=== PATIENT | male | born 1995 | race Caucasian/White ===

== ENCOUNTER 2018-08-18 06:13 | Observation (INO) | payer OTHER, SELFPAY ==
[2018-08-18] VITALS (18 sets, daily range): BP systolic 93–128; BP diastolic 32–77; PULSE 47–70; RESP 12–16; TEMP 36.3–37.5; O2SAT 96–100; BMI 22.8; BMI 22.3
--- NOTE | 2018-08-18 | PATH_ITS ---
[facility] Accession Number: [id number] . 01 Material submitted: . appendix - APPENDIX . 02 Diagnosis: Appendix, Appendectomy: Acute suppurative appendicitis with serositis. No evidence of dysplasia or malignancy. [facility]/08/20/2018 . 02 Electronically signed: . Riya Gutierrez MD, Pathologist NPI- [id number] . 01 Gross description: . Received in formalin, labeled appendix, is an intact appendix (length-6.9 cm, diameter-up to 0.9 cm) with haley-pink smooth shiny serosa and attached mesoappendix (up to 1.2 cm in depth). The resection margin is received stapled. The lumen contains red-brown soft material. The wall is up to 0.2 cm thick. No nodules, masses or lesions are identified. The resection margin is inked black. Section code: (A1) resection margin en face and five additional serial sections; (A2) one-half of the bivalved tip. ([id number]) /MRV . 02 Pathologist provided ICD-10: K35.80 . 02 CPT . 942820 Performed at: 01 [facility] [address], [place], [place] [id number] MD Josh Purvis MD Phone: [phone] Performed at: 02 [facility] [address] [place], [place] [id number] MD Riya Gutierrez MD Phone: [phone]
--- NOTE | 2018-08-18 07:24 | DI.US.S_ITS ---
PROCEDURE: US ABDOMEN LIMITED INDICATIONS: SUDDEN ONSET RLQ PAIN TECHNIQUE: Real-time focused scanning was performed of the abdomen with attention to the appendix, with image documentation. COMPARISON: None. FINDINGS: Appendix visualization: Identified. Appendix measurements: Up to 8 mm in maximal outer dimension thickness, abnormal Associated findings: Echogenic fat: Absent Appendiceal compressibility: Absent Appendicoliths: Absent Nearby free fluid: Absent Lymphadenopathy: Absent Tenderness on exam: Present IMPRESSION: Acute appendicitis. Dictated by: Carlos Pringle M.D. on 08/18/2018 at 8:11 Approved by: Carlos Pringle M.D. on 08/18/2018 at 8:12
[2018-08-18 07:29] LABS: Add Manual Diff / Slide Review NO; Basophils Absolute Auto 0 /uL (0-100); Basophils Percent Auto 0.3 % (0-2); Eosinophils Absolute Auto 200 /uL (0-450); Eosinophils Percent Auto 1.1 % (2-4); Hematocrit 44.8 % (41-53); Hemoglobin 15.1 g/dL (13.5-17.5); Lymphocytes Absolute Auto 2600 /uL (1100-4500); Lymphocytes Percent Auto 18.9 % (25-40); Mean Corpuscular HGB Conc 33.8 % (30-36); Mean Corpuscular Hemoglobin 31.5 PG (26-34); Mean Corpuscular Volume 93.1 fL (80-100); Monocytes Absolute Auto 1100 /uL (0-900); Monocytes Percent Auto 8.1 % (3-14); Neutrophils Absolute Auto 9900 /uL (1500-7000); Neutrophils Percent Auto 71.6 % (50-75); Platelet Count 235 X10^3/uL (150-400); Red Blood Cell Count 4.81 X10^6/uL (4.5-5.9); Red Cell Distribution Width 12.6 % (11.6-14.8); White Blood Cell Count 13.9 X10^3/uL (4.5-11.0)
--- NOTE | 2018-08-18 07:29 | ED_ITS ---
HPI - Abdominal Pain General Chief Complaint: Abdominal Pain Stated Complaint: severe rlq pain x3 hours Time Seen by Provider: 08/18/18 06:30 Source: patient Mode of arrival: ambulatory Limitations: no limitations History of Present Illness HPI narrative: Patient is a 23-year-old male presents with right lower quadrant pain started 3 hours ago. Sudden and severe. Nonradiating. Hurts every time he moves. He was able to eat dinner last night no difficulty. No fever, no vomiting. no history of kidney stones. MD complaint: abdominal pain Onset (ago): hour(s) Pain Consistency: constant Location: RLQ Severity: moderate Quality: stabbing Radiation: none Migration to: no migration Relieving factors: nothing Exacerbating factors: nothing Related Data Allergies Allergy/AdvReac Type Severity Reaction Status Date / Time No Known Drug Allergies Allergy Verified 08/18/18 06:27 Review of Systems Review of Systems GENERAL: Denies chills, fatigue, malaise, fever, sweats, travel HEENT: Denies sinus pain, ear pain, sore throat, difficulty swallowing, neck pain RESPIRATORY: Denies dyspnea, cough, wheezing, hemoptysis, sputum. CARDIOVASCULAR: Denies chest pain, palpitations, orthopnea, edema GASTROINTESTINAL: See HPI : Denies dysuria, frequency, incontinence, hematuria, urinary retention, flank pain. MUSCULOSKELETAL: Denies weakness, joint pain, or bony pain SKIN: No rash, no erythema, no pruritus NEUROLOGIC: Denies weakness, dizziness, headache, numbness, change in speech, confusion PSYCHIATRIC: No concerning psychosocial issues. 12 point review of systems is negative except for those stated above and HPI [facility] Medical History Migraines (Acute) Varicose vein of leg (Acute) Social History household members: significant other Smoking Status: Current every day smoker alcohol intake: current substance use type: does not use Social History household members: significant other Smoking Status: Current every day smoker alcohol intake: current substance use type: does not use Exam Initial Vital Signs Initial Vital Signs: Vital Signs Temperature 97.9 F 08/18/18 06:27 Pulse Rate 56 L 08/18/18 06:27 Respiratory Rate 14 08/18/18 06:27 Blood Pressure 128/65 08/18/18 06:27 Pulse Oximetry 100 08/18/18 06:27 GENERAL: Well-appearing, well-nourished and in no acute distress. HEENT: Head atraumatic,EOMI, pupils reactive, face symmetric, CARDIOVASCULAR: Regular rate and rhythm without murmurs, rubs or gallops. RESPIRATORY: Breath sounds equal bilaterally, no wheezes rales or rhonchi. ABDOMEN: Soft, right lower quadrant tenderness quite severe as mild right flank guarding no rebound : No CVA tenderness EXTREMITIES: Normal range of motion, no clubbing or edema. Neurovascularly intact NEUROLOGICAL: Alert and oriented x4.Normal gait and speech. SKIN: Warm, dry, no laceration, no petechiae, no rashes or lesions. Course Orders Ordered: ED Orders 08/18/18 06:30 Complete Blood Count AUTO DIFF Stat Comprehensive Metabolic Panel Stat Lipase Stat Partial Thromboplastin Time Stat Prothrombin Time INR Stat 08/18/18 07:00 Urine Microscopic Stat 08/18/18 07:24 US abdomen limited Stat Fentanyl (Sublimaze) 50 mcg IV Q5MIN PRN PRN Reason: Pain, Moderate (4-6) Hydromorphone HCl (Dilaudid) 1 mg IV Q2HR PRN PRN Reason: Pain, Severe (7-10) Stop: 08/19/18 00:00 Last Admin: 08/18/18 10:52 Dose: 1 mg Hydromorphone HCl (Dilaudid) 0.5 mg IV Q5MIN PRN PRN Reason: Pain, Moderate (4-6) Sodium Chloride (Normal Saline 0.9%) 1,000 mls @ 100 mls/hr IV CONT GIANNA Last Admin: 08/18/18 10:32 Dose: 100 mls/hr Piperacillin/Tazobactam/Dextrose (Zosyn) 3.375 gm in 50 mls @ 100 mls/hr IV Q8 HR GIANNA Lactated Ringer's (Lactated Ringers) 1,000 mls @ 42 mls/hr IV CONT GIANNA Metoclopramide HCl (Reglan) 10 mg IV NOW PRN PRN Reason: Nausea And Vomiting Ondansetron HCl (Zofran) 4 mg IV NOW PRN PRN Reason: Nausea And Vomiting Discontinued Medications Sodium Chloride (Normal Saline 0.9%) 1,000 mls @ 1,000 mls/hr IV BOLUS ONE Stop: 08/18/18 08:23 Last Infusion: 08/18/18 09:37 Dose: 0 mls/hr Admin: 08/18/18 08:30 Dose: 1,000 mls/hr Piperacillin/Tazobactam/Dextrose (Zosyn) 3.375 gm in 50 mls @ 100 mls/hr IV NOW ONE Stop: 08/18/18 08:24 Last Infusion: 08/18/18 08:48 Dose: 0 mls/hr Admin: 08/18/18 08:18 Dose: 100 mls/hr Ketorolac Tromethamine (Toradol) 30 mg IV NOW ONE Stop: 08/18/18 07:25 Last Admin: 08/18/18 07:47 Dose: Not Given Morphine Sulfate (Morphine) 2 mg IV NOW ONE Stop: 08/18/18 07:50 Last Admin: 08/18/18 07:59 Dose: 2 mg Morphine Sulfate (Morphine) 2 mg IV NOW ONE Stop: 08/18/18 08:24 Last Admin: 08/18/18 08:29 Dose: 2 mg Ondansetron HCl (Zofran) 4 mg IV NOW ONE Stop: 08/18/18 07:41 Last Admin: 08/18/18 07:45 Dose: 4 mg Vital Signs - 8 hr 08/18/18 06:27 08/18/18 08:10 08/18/18 09:55 Temperature 97.9 F 98.4 F Pulse Rate 56 L 70 65 Respiratory Rate 14 16 16 Blood Pressure 128/65 111/61 Blood Pressure [Right Arm] 121/56 L Pulse Oximetry 100 100 100 08/18/18 11:04 Temperature 98.5 F Pulse Rate 62 Respiratory Rate 16 Blood Pressure 109/44 L Blood Pressure [Right Arm] Pulse Oximetry 97 MDM - Abdominal Pain Lab Data Attestation: I reviewed the patient's lab results. Result diagrams: 08/18/18 06:30 08/18/18 06:30 Lab Results 08/18/18 08/18/18 08/18/18 Range/Units 06:30 06:30 06:30 WBC 13.9 H (4.5-11.0) X10^3/uL RBC 4.81 (4.5-5.9) X10^6/uL Hgb 15.1 (13.5-17.5) g/dL Hct 44.8 (41-53) % MCV 93.1 (80-100) fL MCH 31.5 (26-34) PG MCHC 33.8 (30-36) % RDW 12.6 (11.6-14.8) % Plt Count 235 (150-400) X10^3/uL Neut % (Auto) 71.6 (50-75) % Lymph % (Auto) 18.9 L (25-40) % [place] % (Auto) 8.1 (3-14) % Eos % (Auto) 1.1 L (2-4) % Baso % (Auto) 0.3 (0-2) % Neut # (Auto) 9900 H (4401-9690) /uL Lymph # (Auto) 2600 (5308-8348) /uL [place] # (Auto) 1100 H (0-900) /uL Eos # (Auto) 200 (0-450) /uL Baso # (Auto) 0 (0-100) /uL PT 11.5 (10.1-12.7) SECONDS INR 1.0 (0.9-1.3) APTT 34 (26.4-36.2) SECONDS Sodium 140 (137-145) mmol/L Potassium 4.1 (3.4-5.1) mmol/L Chloride 104 (98-107) mmol/L Carbon Dioxide 28 (22-32) mmol/L BUN 14 (9-20) mg/dL Creatinine 0.80 (0.66-1.25) mg/dL Estimated GFR > 60.0 (>60) mL/min BUN/Creatinine Ratio 17.5 (6-22) Glucose 100 (70-100) mg/dL Calcium 9.7 (8.4-10.2) mg/dL Total Bilirubin 0.4 (0.2-1.3) mg/dL AST 26 (17-59) IU/L ALT 21 (21-72) IU/L Alkaline Phosphatase 56 (38-126) U/L Total Protein 7.0 (6.3-8.2) g/dL Albumin 4.5 (3.5-5.0) g/dL Globulin 2.5 (1.7-4.1) g/dL Albumin/Globulin Ratio 1.8 (1.0-2.8) Lipase 41 (23-300) U/L Imaging Data US - abdomen: Radiologist's impression: PROCEDURE: US ABDOMEN LIMITED INDICATIONS: SUDDEN ONSET RLQ PAIN TECHNIQUE: Real-time focused scanning was performed of the abdomen with attention to the a ppendix, with image documentation. COMPARISON: None. FINDINGS: Appendix visualization: Identified. Appendix measurements: Up to 8 mm in maximal outer dimension thickness, abnormal Associated findings: Echogenic fat: Absent Appendiceal compressibility: Absent Appendicoliths: Absent Nearby free fluid: Absent Lymphadenopathy: Absent Tenderness on exam: Present IMPRESSION: Acute appendicitis. Dictated by: Carlos Pringle M.D. on 08/18/2018 at 8:11 MDM Narrative Medical decision making narrative: I called and spoke with Dr. medina written ED to see and evaluate patient herself. Patient likely could OR later this afternoon and 1st go up to the floor. She requests Zosyn be given. Discharge Plan Departure Patient Disposition: Admitted As Inpatient Clinical Impression: Acute appendicitis Qualifiers: Acute appendicitis type: with localized peritonitis Appendicitis gangrene presence: without gangrene Appendicitis perforation presence: without perforation Appendicitis abscess presence: without abscess Qualified Code(s): K35.30 - Acute appendicitis with localized peritonitis, without perforation or gangrene Discharge Date/Time: 08/18/18 09:41 Interventions: ED Discharge Assessment Last Done: 08/18/18 09:41 Admit Date/Time: 08/18/18 09:41 Admit Provider: Phoebe Medina
[2018-08-18 07:30] LABS: Prothrombin Time 11.5 SECONDS (10.1-12.7)
[2018-08-18 07:33] LABS: PTT Partial Thromboplastin Tim 34 SECONDS (26.4-36.2)
[2018-08-18 07:35] LABS: Alanine Aminotransferase 21 IU/L (21-72); Albumin 4.5 g/dL (3.5-5.0); Albumin Globulin Ratio 1.8 (1.0-2.8); Alkaline Phosphatase 56 U/L (38-126); Aspartate Aminotransferase 26 IU/L (17-59); BUN Creatinine Ratio 17.5 (6-22); Bilirubin Total 0.4 mg/dL (0.2-1.3); Blood Urea Nitrogen 14 mg/dL (9-20); Calcium 9.7 mg/dL (8.4-10.2); Carbon Dioxide 28 mmol/L (22-32); Chloride 104 mmol/L (98-107); Estimated Glomerular Filt Rate > 60.0 mL/min (>60); Globulin 2.5 g/dL (1.7-4.1); Glucose 100 mg/dL (70-100); HEMOLYSIS 26 (0-50); Lipase 41 U/L (23-300); Potassium 4.1 mmol/L (3.4-5.1); Sodium 140 mmol/L (137-145)
[2018-08-18] MEDS: ONDANSETRON 4 MG/2 ML INJ IV (07:45)
[2018-08-18] MEDS: MORPHINE 2 MG/ML INJ IV ×2 (07:59→08:29)
[2018-08-18] MEDS: PIPERACILLIN-TAZO 3.375 GM/50 ML FROZ.PIGGY IV ×2 (08:18→14:15)
[2018-08-18] MEDS: SODIUM CHLORIDE 0.9% 1,000 ML 1000 ML IV (08:30)
--- NOTE | 2018-08-18 09:52 | PM.HP.1 ---
History of Present Illness Date Patient Seen: 08/18/18 Time Patient Seen: 09:19 Chief complaint: severe rlq pain x3 hours Narrative: Otherwise healthy 23yo M went to bed asymptomatic and woke up around 3AM with a sharp RLQ pain. Has had nausea and vomited once. Pain was severe and persistent so he came to the ED for evaluation. US shows a thickened and enlarged appendix. WBC is 13.9. Zosyn started in the ED. No PO intake since last night. Patient History Medical History Migraines (Acute) Varicose vein of leg (Acute) Social History Smoking Status: Current every day smoker alcohol intake: never substance use type: does not use Family & Social History Tobacco & Substance use: Smoking Status Current every day smoker alcohol intake never alcohol intake frequency 0-2 drinks per day Substance Use Type marijuana Meds Allergies Allergy/AdvReac Type Severity Reaction Status Date / Time No Known Drug Allergies Allergy Verified 08/18/18 06:27 Review of Systems Review of Systems All systems reviewed & are unremarkable except as noted in HPI and below Exam Vital Signs (past 8 hours): - 08/18/18 06:27 08/18/18 08:10 Temperature 97.9 F Pulse Rate 56 L 70 Respiratory Rate 14 16 Blood Pressure 128/65 Blood Pressure [Right Arm] 121/56 L Pulse Oximetry 100 100 Oxygen Delivery Method Room Air Narrative Exam Narrative: AAO, NAD, male of healthy weight EOMI, MMM, no scleral icterus unlabored RA soft, nd, ttp RLQ, no peritoneal signs MAEW visible skin dry and intact Objective Labs Result Diagrams: 08/18/18 06:30 08/18/18 06:30 Labs: Laboratory Results - last 24 hr 08/18/18 08/18/18 08/18/18 06:30 06:30 06:30 WBC 13.9 H RBC 4.81 Hgb 15.1 Hct 44.8 MCV 93.1 MCH 31.5 MCHC 33.8 RDW 12.6 Plt Count 235 Neut % (Auto) 71.6 Lymph % (Auto) 18.9 L [place] % (Auto) 8.1 Eos % (Auto) 1.1 L Baso % (Auto) 0.3 Neut # (Auto) 9900 H Lymph # (Auto) 2600 [place] # (Auto) 1100 H Eos # (Auto) 200 Baso # (Auto) 0 PT 11.5 INR 1.0 APTT 34 Sodium 140 Potassium 4.1 Chloride 104 Carbon Dioxide 28 BUN 14 Creatinine 0.80 Estimated GFR > 60.0 BUN/Creatinine Ratio 17.5 Glucose 100 Calcium 9.7 Total Bilirubin 0.4 AST 26 ALT 21 Alkaline Phosphatase 56 Total Protein 7.0 Albumin 4.5 Globulin 2.5 Albumin/Globulin Ratio 1.8 Lipase 41 Assessment & Plan Assessment & Plan narrative: - Plan for OR for lap appy --> all R/B/A discussed and pt wishes to proceed - zosyn - NPO, MIVFs - OOB prn prior to OR - discussed options of home post op v staying overnight pending OR findings and pt's tolerance
[2018-08-18] MEDS: SODIUM CHLORIDE 0.9% 1,000 ML 100 ML IV (10:32)
[2018-08-18] MEDS: HYDROMORPHONE 1 MG INJ IV (10:52)
--- NOTE | 2018-08-18 11:43 | PC.NURSE ---
0958 Pt arrived from ED via w/c. PT on r/a, got into the bed w/o diff. C/o slight pain to lower right abd. SL to the R ac intact. Pt given call light , inst on use. Pt inst on NPO status.
--- NOTE | 2018-08-18 12:25 | PC.NURSE ---
pt to surgery.
[2018-08-18] MEDS: LACTATED RINGERS 1,000 ML 42 ML IV ×2 (12:50→14:07)
--- NOTE | 2018-08-18 13:39 | SUR.OPER ---
Supine on padded OR bed, head on pillow, arm padded and tucked at side, legs uncrossed, safety belt at thigh, tape over blanket over lower legs .
[2018-08-18] MEDS: BUPIVACAINE 0.25% W/ EPI 30 ML VIAL INJ (14:22)
--- NOTE | 2018-08-18 15:05 | PM.OP.1 ---
Operative Date/Time/Diagnoses Date of procedure: 08/18/18 Time of procedure: 15:05 Pre-op diagnosis: Acute Appendicitis Post-op diagnosis: same Procedure & Clinicians Procedure: Laparoscopic Appendectomy Same procedure as scheduled: Yes Indications: 23yo M with acute onset of severe RLQ pain associated with nausea and vomiting x1. In the ED, he had a leukocytosis and both exam and imaging indicate appendicitis. He was started on antibiotics and taken to the OR after informed consent was obtained. Click Yes if Unassisted: Yes Anesthesia Type: General Operative Notes Findings: appendicitis, inflamed tip with straw colored fluid, non-ruptured Closure Type: primary Specimen(s): other (appendix) Estimated Blood Loss (mL): 10 Procedure in detail: The patient was taken to the operating room and placed on the operating table in supine position. The abdomen was prepped and draped in sterile fashion and a timeout performed with the team present. Using a 15 blade scalpel after infiltration with local anesthesia, a subumbilical curvilinear incision was made and carried down to the fascia with blunt dissection. The umbilical stalk was grasped and elevated and an incision made. Stay sutures of 0-Ethibond were placed on either side and the العراقي trocar introduced. Once confirmed to be within the peritoneum, the abdomen was insufflated with air. Diagnostic laparoscopy showed no injury from initial trocar placement. Under direct vision and after infiltration with local anesthesia, an additional 5 mm trocar was then placed in the midline just above the pubic hairline and a 5 mm trocar was then placed in the left lower quadrant. The patient was then placed left side down and in Trendelenberg position. The small bowel was retracted to the left side of the patient. A loop of the terminal ileum was stuck to the lateral abdominal wall and required blunt and sharp dissection to release. The appendix was identified behind the TI and coming off of the cecum. The tip was enlarged and inflamed with moderate fibrinous exudate. This was grasped with a blunt grasper. Using a [place] dissector, a window was made between the mesoappendix and the appendix itself. Using a 45mm Endo IZAIAH stapler with a tissue load, the appendix was transected out at the base. Using a vascular load, the mesoappendix was then transected with the Endo IZAIAH stapler as well. The staple lines were noted to be intact but he had a prominent pulse and bleeding was noted from the mesoappendix staple line as well as minimal oozing from the bowel staple line. Cauterized [place] tips were used to carefully control this. The area was irrigated and observed until there was no further bleeding. The appendix was placed into an EndoCatch retrieval bag and removed through the 12 mm port. All free fluid was suctioned from the pelvis, right gutter, and the area around the staple line. The midline incision was closed with the stay sutures previously placed. The remainder of the local anesthesia was injected over each of the fascial incision sites. The secondary trocars were then removed under direct vision noting no bleeding. The abdomen was allowed to desufflate fully and the final trocar was removed. The skin incisions were then closed using 4-0 Monocryl in an interrupted subcuticular fashion. All counts were correct at the end of the procedure. The abdomen was cleaned and dried. Steristrips were placed over the incisions. The patient was awakened and taken to postanesthesia care unit in stable condition. Complications: none Condition: stable Disposition: PACU Plan for aftercare: will monitor overnight
[2018-08-18] MEDS: fentaNYL 100 MCG/2 ML INJ 50 MCG IV (15:15)
[2018-08-18] MEDS: OXYCODONE/ACETAMINOPHEN 5/325 TABLET 1 TAB PO ×2 (17:24→21:30)
--- NOTE | 2018-08-19 01:54 | PC.NURSE ---
2300- Pt admit for RLQ pain, POD#0 laproscopic appendectomy w/ 3 sites closed w/ steri strips and CDI. Pt denies any abdom pain, naus. Tolerating PO intake & drink. Moving around room SBA w/ no lightheadedness noted. Regular (VEGAN) diet ordered; VSS on RA. 0300- Pt CO some surgical site pain; PO percocet given.
[2018-08-19] MEDS: OXYCODONE/ACETAMINOPHEN 5/325 TABLET 1 TAB PO ×2 (02:56→07:44)
[2018-08-19 03:06] VITALS: BP 127/83; PULSE 65; RESP 16; TEMP 36.7; O2SAT 99
[2018-08-19 08:21] VITALS: BP 122/66; PULSE 65; RESP 16; TEMP 36.7; O2SAT 99
--- NOTE | 2018-08-19 08:50 | PM.DS.1 ---
History of Present Illness Chief complaint: severe rlq pain x3 hours Narrative: Otherwise healthy 23yo M went to bed asymptomatic and woke up around 3AM with a sharp RLQ pain. Has had nausea and vomited once. Pain was severe and persistent so he came to the ED for evaluation. US shows a thickened and enlarged appendix. WBC is 13.9. Zosyn started in the ED. No PO intake since last night. Discharge Providers Date of admission: 08/18/18 09:41 Discharge Date: 08/19/18 Consults: 08/18/18 15:49 Consult to Discharge Planning Routine Comment: Discharge provider: Phoebe Roper MD Summary Discharge Diagnosis: appendicitis Hospital Course: Admitted with findings of appendicitis, given antibiotics and taken to the OR for lap appendectomy. Tolerated well, dennys solid foods, expected soreness but pain controlled with PO meds. Status at Discharge Cognitive/behavioral status at discharge: at baseline, oriented and calm Functional status at discharge: independent ambulation Time Spent with Patient Less than 30 minutes Exam Vital Signs (past 8 hours): - 08/19/18 03:06 08/19/18 08:21 Temperature 98.0 F 98.1 F Pulse Rate 65 65 Respiratory Rate 16 16 Blood Pressure 127/83 122/66 Pulse Oximetry 99 99 Oxygen Delivery Method Room Air Oxygen Flow Rate 0 Narrative Exam Narrative: AAO, NAD EOMI, MMM unlabored RA soft, nd, appropriate ttp, inc c/d/i MAEW Objective Labs Result Diagrams: 08/18/18 06:30 08/18/18 06:30 Discharge Plan Discharge Plan Discharge Problem: Acute appendicitis Patient Disposition: Home Discharge Med Rec/Prescriptions Prescriptions: New oxycodone-acetaminophen 5-325 mg Tablet 1 tab PO Q4HR PRN (Reason: Pain, Moderate (4-6)) Qty: 30 RF: 0 No Action No Known Home Medications RF: 0 Follow up/Referrals: Phoebe Roper MD [Physician] - Provider Discharge Instructions Diet: Diet as Tolerated Activity: as tolerated; no heavy lifting > 20 lbs; no driving while on narcotics Cold/Heat Therapy: prn Skin/Wound/Dressing Care Skin care: shower per normal routine Dressing: leave, will fall off in 5-7 days Visit Report/Discharge Packet Instructions: DI for an Appendectomy, DI for Laparoscopy Stand Alone Forms: Surgery Discharge Discharge Data Attending Provider: Phoebe Roper Admit Date/Time: 08/18/18 09:41 Quality VTE Deep Vein Thrombosis/Pulmonary Embolism Present on Admission: No
--- NOTE | 2018-08-19 10:28 | PC.NURSE ---
PATIENT DOING WELL. NO N/V, EATING AND DRINKING FLUIDS WELL. TOLERATING INCISIONAL PAIN. DOES HAVE REFERRED PAIN TO RIGHT SHOULDER S/P LAPAROSCOPIC PROCEDURE. SCRIPT TO PATIENT. TEACHING PROVIDED. S.O. AT BEDSIDE FOR TEACHING. PATIENT LEFT W/ ALL BELONGINGS AND PAPERWORK IN NO S/SX'S OF DISTRESS W/ STUDENT NURSE ESCORT TO [facility].
--- NOTE | 2018-08-20 08:40 | CM.DPNOTE ---
Late Entry/ DC Note: Pt discussed in multidisciplinary rounds yesterday morning. No barriers indicated to safe return home. No SW needs upon DC. JW
--- NOTE | 2018-10-11 15:00 | PC.NURSE ---
Late entry- Sodium chloride 0.9% infusion stopped 08/18 at 1552 per ack order
== END 2018-08-19 10:30 | disposition home or self-care (01) ==
LOC: ED 09:40 → AC 09:47
PROVIDERS: Emergency Medicine; Admitting Provider Surgery; Emergency Provider Emergency Medicine; Visit Provider Surgery
PROC: 0DTJ4ZZ Resection of Appendix, Percutaneous Endoscopic Approach (ICD-10-PCS; CPT 44970; principal; 2018-08-18 13:00)
DX: K35.80 Unspecified acute appendicitis (principal); R10.31 Right lower quadrant pain; F17.210 Nicotine dependence, cigarettes, uncomplicated
CPT/HCPCS: 44970; 36591; 76705; 80053; 83690; 85025; 85610; 85730; 96361; 96365; 96375; 96376; 99220; 99283; 99284; 99406; G0378; J0330; J1100; J1170; J2270; J2405; J2543; J2704; J3010

== ENCOUNTER 2025-03-28 20:01 | Emergency (ER) | payer OTHER, SELFPAY ==
[2018-08-19 10:39] VITALS: BMI 22.3
[2025-03-28 20:10] VITALS: BP 158/81; PULSE 68; RESP 18; TEMP 37; O2SAT 97; BMI 28.5
--- NOTE | 2025-03-28 20:15 | DI.RAD.S_ITS ---
PROCEDURE: XR WRIST RT MIN 3V INDICATIONS: nail puncture to wrist, pain and swelling TECHNIQUE: 4 views of the wrist were acquired. COMPARISON: None. FINDINGS: Bones: No fractures or dislocations. No suspicious bony lesions. Soft tissues: No suspicious soft tissue calcifications. No radiopaque foreign body. IMPRESSION: No visualized acute fracture or dislocation. However, if clinical concern and/or pain persist, short interval imaging followup in 7-10 days is recommended, as occult injury cannot be definitively excluded. Dictated by: Gabriela Gan M.D. on 03/28/2025 at 20:34 Approved by: Gabriela Gan M.D. on 03/28/2025 at 20:35
--- NOTE | 2025-03-28 22:07 | ED_ITS ---
HPI - Extremity Injury (Upper) <Agustin Canada MD - Last Filed: 03/28/25 22:10> General Chief Complaint: Extremity Injury, Upper Stated Complaint: Rt wrist laceration (nail) Time Seen by Provider: 03/28/25 21:49 Source: patient Mode of arrival: Ambulatory History of Present Illness HPI narrative: This is a 21-year-old male complaining of right wrist pain. 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 State that he was pulling something back and gave way and his right wrist dorsum struck a nail that was sticking out of another piece of wood. He does not believe that he has a retained foreign body. It has been increasingly painful since then. He also has pain with movement of his hand. Not noted any fevers. He had previously healthy, does not know when his last tetanus shot was. Related Data Previous Rx's ?Medication ?Instructions ?Recorded oxycodone-acetaminophen 5 mg-325 1 tab PO Q4HR PRN Richard n, Moderate 08/19/18 mg tablet (4-6) #30 tabs cephalexin 500 mg capsule 500 mg PO QID 7 days #28 cap s 03/29/25 oxycodone 5 mg tablet 5 mg PO Q6H PRN pain #10 tab s 03/29/25 Allergies Allergy/AdvReac Type Severity Reaction Status Date / Time No Known Drug Allergies Allergy Verified 08/18/18 06:27 Patient History <Agustin Canada MD - Last Filed: 03/28/25 22:10> Medical History (Updated 03/29/25 @ 01:49 by Harjit Drummond MD) Migraines Varicose vein of leg Social History household members: significant other Smoking Status: Never smoker alcohol intake: current substance use type: does not use Smoking Status: Never smoker alcohol intake frequency: a few times a month Exam <Agustin Canada MD - Last Filed: 03/28/25 22:10> Narrative Exam Narrative: Appears uncomfortable. Vital signs are reviewed and unremarkable. Right wrist is swollen and slightly warm. There is a puncture wound visible on the dorsum of the wrist a proximally in line with the 3rd digit of the hand. Has pain with active and passive movement of the hand and wrist. No proximal lymphangitic streaking. No axillary adenopathy. Initial Vital Signs Initial Vital Signs: Vital Signs Temperature 98.6 F 03/28/25 20:10 Pulse Rate 68 03/28/25 20:10 Respiratory Rate 18 03/28/25 20:10 Blood Pressure 158/81 H 03/28/25 20:10 Pulse Oximetry 97 03/28/25 20:10 Oxygen Delivery Method Room Air 03/28/25 20:10 <Harjit Drummond MD - Last Filed: 03/29/25 04:59> Initial Vital Signs Initial Vital Signs: Vital Signs Temperature 98.6 F 03/28/25 20:10 Pulse Rate 68 03/28/25 20:10 Respiratory Rate 18 03/28/25 20:10 Blood Pressure 158/81 H 03/28/25 20:10 Pulse Oximetry 97 03/28/25 20:10 Oxygen Delivery Method Room Air 03/28/25 20:10 Course <Agustin Canada MD - Last Filed: 03/28/25 22:10> Orders Ordered: ED Orders 03/28/25 20:15 XR wrist RT min 3V Stat 03/28/25 22:50 BMP [Basic Metabolic Panel] Stat CBC Auto Diff [Complete Blood Count AUTO DIFF] Stat CRP [C-Reactive Protein Quant] Stat ESR [Erythrocyte Sedimentation Rate] Stat 03/29/25 00:11 CT UE RT w con Stat Discontinued Medications Diphtheria/Tetanus/Acell Pertussis (Tet,Diph,Pertuss(Acell),Vac/Pf 0.5 Ml Syringe) 0.5 ml IM .ONCE ONE Stop: 03/29/25 00:03 Last Admin: 03/29/25 00:25 Dose: 0.5 ml Documented By: ANNE Hydromorphone HCl (Hydromorphone Hcl 0.5 Mg/0.5 Ml Syringe) 0.5 mg IV NOW ONE Stop: 03/29/25 00:11 Last Admin: 03/29/25 00:26 Dose: 0.5 mg Documented By: ANNE Hydromorphone HCl (Hydromorphone Hcl 0.5 Mg/0.5 Ml Syringe) 0.5 mg IV NOW ONE Stop: 03/29/25 01:25 Last Admin: 03/29/25 01:37 Dose: 0.5 mg Documented By: ANNE Ceftriaxone Sodium 1,000 mg/ (Sodium Chloride) 100 mls @ 200 mls/hr IV NOW ONE Stop: 03/29/25 00:12 Last Infusion: 03/29/25 01:36 Dose: Infused Documented By: Admin: 03/29/25 00:23 Dose: 200 mls/hr Documented By: ANNE Vancomycin HCl/Dextrose (Vancomycin) 2,000 mg in 400 mls @ 200 mls/hr IV NOW ONE Stop: 03/29/25 02:10 Last Infusion: 03/29/25 04:06 Dose: Infused Documented By: Admin: 03/29/25 00:24 Dose: 200 mls/hr Documented By: ANNE Ketorolac Tromethamine (Ketorolac 30 Mg/Ml Vial) 15 mg IV NOW ONE Stop: 03/29/25 00:11 Last Admin: 03/29/25 00:26 Dose: 15 mg Documented By: ANNE Oxycodone HCl (Oxycodone Ir 5 Mg Tablet) 5 mg PO NOW ONE Stop: 03/28/25 21:54 Last Admin: 03/28/25 22:12 Dose: 5 mg Documented By: DEREK Oxycodone/Acetaminophen (Oxycodone/Apap 5/325 Prepack) 1 bottle MISC DIRECTED ONE Stop: 03/29/25 01:49 Last Admin: 03/29/25 03:21 Dose: 1 bottle Documented By: ANNE Vital Signs Vital signs: Vital Signs - 8 hr 03/29/25 04:25 Temperature 98.2 F Pulse Rate 71 Respiratory Rate 18 Blood Pressure 143/79 H Pulse Oximetry 96 Oxygen Delivery Method Room Air <Harjit Drummond MD - Last Filed: 03/29/25 04:59> Orders Ordered: ED Orders 03/28/25 20:15 XR wrist RT min 3V Stat 03/28/25 22:50 BMP [Basic Metabolic Panel] Stat CBC Auto Diff [Complete Blood Count AUTO DIFF] Stat CRP [C-Reactive Protein Quant] Stat ESR [Erythrocyte Sedimentation Rate] Stat 03/29/25 00:11 CT UE RT w con Stat Discontinued Medications Diphtheria/Tetanus/Acell Pertussis (Tet,Diph,Pertuss(Acell),Vac/Pf 0.5 Ml Syringe) 0.5 ml IM .ONCE ONE Stop: 03/29/25 00:03 Last Admin: 03/29/25 00:25 Dose: 0.5 ml Documented By: ANNE Hydromorphone HCl (Hydromorphone Hcl 0.5 Mg/0.5 Ml Syringe) 0.5 mg IV NOW ONE Stop: 03/29/25 00:11 Last Admin: 03/29/25 00:26 Dose: 0.5 mg Documented By: ANNE Hydromorphone HCl (Hydromorphone Hcl 0.5 Mg/0.5 Ml Syringe) 0.5 mg IV NOW ONE Stop: 03/29/25 01:25 Last Admin: 03/29/25 01:37 Dose: 0.5 mg Documented By: ANNE Ceftriaxone Sodium 1,000 mg/ (Sodium Chloride) 100 mls @ 200 mls/hr IV NOW ONE Stop: 03/29/25 00:12 Last Infusion: 03/29/25 01:36 Dose: Infused Documented By: Admin: 03/29/25 00:23 Dose: 200 mls/hr Documented By: ANNE Vancomycin HCl/Dextrose (Vancomycin) 2,000 mg in 400 mls @ 200 mls/hr IV NOW ONE Stop: 03/29/25 02:10 Last Infusion: 03/29/25 04:06 Dose: Infused Documented By: Admin: 03/29/25 00:24 Dose: 200 mls/hr Documented By: ANNE Ketorolac Tromethamine (Ketorolac 30 Mg/Ml Vial) 15 mg IV NOW ONE Stop: 03/29/25 00:11 Last Admin: 03/29/25 00:26 Dose: 15 mg Documented By: ANNE Oxycodone HCl (Oxycodone Ir 5 Mg Tablet) 5 mg PO NOW ONE Stop: 03/28/25 21:54 Last Admin: 03/28/25 22:12 Dose: 5 mg Documented By: DEREK Oxycodone/Acetaminophen (Oxycodone/Apap 5/325 Prepack) 1 bottle MISC DIRECTED ONE Stop: 03/29/25 01:49 Last Admin: 03/29/25 03:21 Dose: 1 bottle Documented By: ANNE Vital Signs Vital signs: Vital Signs - 8 hr 03/29/25 04:25 Temperature 98.2 F Pulse Rate 71 Respiratory Rate 18 Blood Pressure 143/79 H Pulse Oximetry 96 Oxygen Delivery Method Room Air MDM - Extremity Injury (Upper) <Agustin Canada MD - Last Filed: 03/28/25 22:10> Lab Data 03/28/25 22:50 03/28/25 22:50 Labs: Lab Results 03/28/25 Range/Units 22:50 WBC 14.3 H (4.5-11.0) X10^3/uL RBC 4.56 (4.5-5.9) X10^6/uL Hgb 14.1 (13.5-17.5) g/dL Hct 41.5 (41-53) % MCV 91.0 (80-100) fL MCH 31.0 (26-34) PG MCHC 34.1 (30-36) % RDW 13.3 (11.6-14.8) % Plt Count 229 (150-400) X10^3/uL Neut % (Auto) 76.9 H (50-75) % Lymph % (Auto) 11.6 L (25-40) % Walker % (Auto) 10.4 (3-14) % Eos % (Auto) 0.9 L (2-4) % Baso % (Auto) 0.2 (0-2) % Neut # (Auto) 90011 H (2588-4176) /uL Lymph # (Auto) 1700 (2825-1025) /uL Walker # (Auto) 1500 H (0-900) /uL Eos # (Auto) 100 (0-450) /uL Baso # (Auto) 0 (0-100) /uL ESR 5 (0-15) MM/HR Sodium 140 (137-145) mmol/L Potassium 3.6 (3.4-5.1) mmol/L Chloride 108 H (98-107) mmol/L Carbon Dioxide 22 (22-32) mmol/L BUN 18 (9-20) mg/dL Creatinine 0.74 (0.66-1.25) mg/dL Estimated GFR > 60 (>60) mL/min BUN/Creatinine Ratio 24.3 H (6-22) Glucose 123 H (70-99) mg/dL Calcium 9.1 (8.4-10.2) mg/dL C-Reactive Protein 0.9 (<1.0) mg/dL <Harjit Drummond MD - Last Filed: 03/29/25 04:59> Lab Data Attestation: I reviewed the patient's lab results. Lab results narrative: White blood cell count 56170, hemoglobin 14.1, platelets adequate. Glucose 123, normal renal function, serum CO2, electrolytes. Serum CRP and ESR not elevated. Labs: Lab Results 03/28/25 Range/Units 22:50 WBC 14.3 H (4.5-11.0) X10^3/uL RBC 4.56 (4.5-5.9) X10^6/uL Hgb 14.1 (13.5-17.5) g/dL Hct 41.5 (41-53) % MCV 91.0 (80-100) fL MCH 31.0 (26-34) PG MCHC 34.1 (30-36) % RDW 13.3 (11.6-14.8) % Plt Count 229 (150-400) X10^3/uL Neut % (Auto) 76.9 H (50-75) % Lymph % (Auto) 11.6 L (25-40) % Walker % (Auto) 10.4 (3-14) % Eos % (Auto) 0.9 L (2-4) % Baso % (Auto) 0.2 (0-2) % Neut # (Auto) 37282 H (8881-8776) /uL Lymph # (Auto) 1700 (9938-1500) /uL Walker # (Auto) 1500 H (0-900) /uL Eos # (Auto) 100 (0-450) /uL Baso # (Auto) 0 (0-100) /uL ESR 5 (0-15) MM/HR Sodium 140 (137-145) mmol/L Potassium 3.6 (3.4-5.1) mmol/L Chloride 108 H (98-107) mmol/L Carbon Dioxide 22 (22-32) mmol/L BUN 18 (9-20) mg/dL Creatinine 0.74 (0.66-1.25) mg/dL Estimated GFR > 60 (>60) mL/min BUN/Creatinine Ratio 24.3 H (6-22) Glucose 123 H (70-99) mg/dL Calcium 9.1 (8.4-10.2) mg/dL C-Reactive Protein 0.9 (<1.0) mg/dL Imaging Data CT right upper extremity with IV contrast right wrist and hand: Radiologist's Impression: [address] [address] [address] Scan Report Signed Patient: Lio Benitez MR#: [id number] : 1995 Acct:[id number] Age/Sex: 29 / M Date of Service: 03/29/25 Loc: ED Accession Number: [id number] Procedure: CT UE RT w con Ordering Provider: Harjit Drummond MD PROCEDURE: CT UE RT W CON INDICATIONS: swelling red hand/wrist, puncture TECHNIQUE: After the administration of intravenous contrast, 3 mm axial sections acquired of the upper extremity , with coronal and sagittal reformats. COMPARISON: [facility], CR, XR WRIST RT MIN 3V, 03/28/2025, 20:12. FINDINGS: Image quality: Excellent. Bones: No visualized fracture or dislocation. No suspicious osseous lesions. Soft tissues: No radiopaque foreign body. Appearance of decreased attenuation is present within the soft tissues between the distal radius and ulna appearing to be most suggestive of prominent focal fat. Mild subcutaneous fat stranding at the level of the wrist. Questionable small amount of fluid is present measuring approximately 8 mm. No visualized soft tissue air. IMPRESSION: Subcutaneous fat stranding suggestive inflammation. No soft tissue air. Questionable small appearance of fluid at the ulna aspect of the wrist. This could be related to recent trauma. Small areas seroma versus developing abscess cannot be excluded. Dictated by: Gabriela Gan M.D. on 03/29/2025 at 0:59 Approved by: Gabriela Gan M.D. on 03/29/2025 at 1:05 MDM Narrative Medical decision making narrative: 03/27/25, Bhanu Swann. Sign-out from Dr. Canada. X-ray report right wrist pending. 29-year-old male was pulling of his arm while working yesterday, struck dorsal right wrist against overhead extruding metal nail, puncture wound to the dorsal right wrist, increasing redness and swelling and wrist area pain. Erythema to the dorsal wrist extending to the lateral 5th and 4th metacarpal bones with some swelling, no fluctuance or expressible fluid. Can move his right wrist some, but limited due to pain. Distal perfusion right fingers adequate. Assumed care. IV vancomycin, IV ceftriaxone, IM Tdap tetanus update given. X-ray right wrist, no obvious fracture dislocation or foreign body. See radiology report. Lab data: White blood cell count 55314, hemoglobin 14.1, platelets adequate. Glucose 123, normal renal function, serum CO2, electrolytes. Serum CRP and ESR not elevated. CT right hand/wrist additionally ordered, to evaluate for drainable fluid collection, and/or bony injuries and/or foreign body not seen on plain film. CT right hand wrist. IMPRESSION: Subcutaneous fat stranding suggestive inflammation. No soft tissue air. Questionable small appearance of fluid at the ulna aspect of the wrist. This could be related to recent trauma. Small areas seroma versus developing abscess cannot be excluded. See teleradiology report. Case discussed with Orthopedic surgery Dr. Fofana, doubt need for any drainage now, no large fluid organized collection for drainage at this time, could consider diagnostic wrist tap but moving wrist, seems less likely. Advised to trial of outpatient antibiotics, advises Kelfex monotherapy. Prescription for cephalexin antibiotic sent to his requested pharmacy. Oxycodone oral dose given, home pack provided, short term prescription sent to his requested pharmacy, for pain control. Advised recheck with Orthopedic Clinic, in close follow up next couple of days. Discharged home with family. Return precautions discussed. Referral made for close follow-up 1-2 days with [facility], has no local PCP Discharge Plan Departure Patient Disposition: Home Clinical Impression: Cellulitis of right hand, Cellulitis of right wrist Activity Restrictions/Additional Instructions: Dorsal right wrist puncture wound with redness to the dorsal wrist and hand area. No fever at triage. Some movement of the wrist though painful. X-rays without fracture or foreign body per radiologist's interpretation report. CT right wrist and hand also performed, no distinct drainable fluid, no distention of the wrist joint suggestive of effusion at this time, no mentioned of any foreign body materials, no bony fractures. IV vancomycin and ceftriaxone antibiotics initiated. Labs sent. Pain medications given. Intramuscular tetanus shot given. Case discussed with on-call orthopedic surgery Dr. Fofana who felt that we could probably treat you as an outpatient for now in close follow up. She suggested cephalexin further oral antibiotic. You have no local primary doctor. You can be seen in [facility], referral placed. Recheck there in the next couple of days. You should be contacted tomorrow, if you have not heard from anyone by the afternoon call contact number for close follow up ER visit in their clinic. Return earlier to this/nearest emergency department for any change worsening symptoms or any concerns prior. Home pack given for short course oxycodone, after home pack dispensed from the emergency department, to take for pain control. Prescriptions: New cephalexin 500 mg capsule 500 mg PO QID 7 Days Qty: 28 0RF oxycodone 5 mg tablet 5 mg PO Q6H PRN (Reason: pain) Qty: 10 0RF No Action oxycodone-acetaminophen 5-325 mg Tablet 1 tab PO Q4HR PRN (Reason: Pain, Moderate (4-6)) Qty: 30 0RF Referrals: Riya Fofana DO [Physician, Orthopedic Surgery] Stand Alone Forms: Patient Portal/API
[2025-03-28 23:05] LABS: Add Manual Diff / Slide Review NO; Hematocrit 41.5 % (41-53); Hemoglobin 14.1 g/dL (13.5-17.5); Lymphocytes Absolute Auto 1700 /uL (1100-4500); Mean Corpuscular HGB Conc 34.1 % (30-36); Mean Corpuscular Hemoglobin 31.0 PG (26-34); Mean Corpuscular Volume 91.0 fL (80-100); Platelet Count 229 X10^3/uL (150-400)
[2025-03-28 23:12] LABS: Blood Urea Nitrogen 18 mg/dL (9-20); Calcium 9.1 mg/dL (8.4-10.2); Carbon Dioxide 22 mmol/L (22-32); Chloride 108 mmol/L (98-107); Estimated Glomerular Filt Rate > 60 mL/min (>60); Glucose 123 mg/dL (70-99); HEMOLYSIS 18 (0-50); Potassium 3.6 mmol/L (3.4-5.1); Sodium 140 mmol/L (137-145)
--- NOTE | 2025-03-29 00:11 | DI.CT.S_ITS ---
PROCEDURE: CT UE RT W CON INDICATIONS: swelling red hand/wrist, puncture TECHNIQUE: After the administration of intravenous contrast, 3 mm axial sections acquired of the upper extremity , with coronal and sagittal reformats. COMPARISON: [facility], CR, XR WRIST RT MIN 3V, 03/28/2025, 20:12. FINDINGS: Image quality: Excellent. Bones: No visualized fracture or dislocation. No suspicious osseous lesions. Soft tissues: No radiopaque foreign body. Appearance of decreased attenuation is present within the soft tissues between the distal radius and ulna appearing to be most suggestive of prominent focal fat. Mild subcutaneous fat stranding at the level of the wrist. Questionable small amount of fluid is present measuring approximately 8 mm. No visualized soft tissue air. IMPRESSION: Subcutaneous fat stranding suggestive inflammation. No soft tissue air. Questionable small appearance of fluid at the ulna aspect of the wrist. This could be related to recent trauma. Small areas seroma versus developing abscess cannot be excluded. Dictated by: Gabriela Gan M.D. on 03/29/2025 at 0:59 Approved by: Gabriela Gan M.D. on 03/29/2025 at 1:05
[2025-03-29] MEDS: VANCOMYCIN 2,000 MG/400 ML PIGGYBACK 200 MG IV (00:24)
[2025-03-29] MEDS: TET,DIPH,PERTUSS(ACELL),VAC/PF 0.5 ML SYRINGE IM (00:25)
[2025-03-29] MEDS: KETOROLAC 30 MG/ML VIAL 15 MG IV (00:26)
[2025-03-29 04:25] VITALS: BP 143/79; PULSE 71; RESP 18; TEMP 36.8; O2SAT 96
== END 2025-03-29 04:28 | disposition home or self-care (01) ==
PROVIDERS: Emergency Medicine; Emergency Provider Emergency Medicine
DX: L03.113 Cellulitis of right upper limb (principal); S61.531A Puncture wound without foreign body of right wrist, initial encounter; W45.0XXA Nail entering through skin, initial encounter; Z23 Encounter for immunization
CPT/HCPCS: 36415; 73110; 73201; 80048; 85025; 85651; 86140; 90471; 96365; 96366; 96367; 96368; 96375; 96376; 99284; 90715; J0696; J1171; J1885; J3375; J7050; Q9967